=== PATIENT | male | born 1945 | race Caucasian/White ===

== ENCOUNTER 2017-09-18 08:06 | Day surgery (SDC) | payer OTHER ==
[2017-09-16 14:16] VITALS: BMI 34.5
[~2017-09-18 08:06] MED LIST: LACTATED RINGERS 1,000 ML IV SCH
[2017-09-18] MEDS ORDERED: LIDOCAINE 1% 20 ML VIAL (10MG/ML) FOR IV START INTRADERMA ONE (08:35)
[2017-09-18 08:36] VITALS: RESP 16; TEMP 97.5
[2017-09-18] MEDS ORDERED: LIDOCAINE 1% INJ 10MG/ML (20 ML MDV) ONE (09:20)
[2017-09-18] MEDS ORDERED: PROPOFOL 10 MG/ML 20 ML VIAL IV ONE (09:20)
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
--- NOTE | 2017-09-18 09:35 | P.OP ---
Date of Procedure: 09/18/17 Preoperative Diagnosis: Screening colonoscopy Postoperative Diagnosis: Diverticulosis Procedure(s) Performed: Colonoscopy Anesthesia: MAC Surgeon: Antonio Carbajal Pathology: none sent Condition: stable Disposition: PACU Description of Procedure: Patient's placed on the endoscopy table in the lateral position. He received IV sedation. Digital rectal was performed. The prostate was symmetrical nodules. There is no abnormalities. Flexible colonoscope was then placed patient anus passed throughout the entire colon. The ileocecal valve was visualized. The cecum, ascending and transverse colon appeared normal. In the descending; there is mild diverticulosis. There is known to diverticulitis. The scope was then brought back the rectum and this appeared normal. Scope was withdrawn for patient.
[2017-09-18 09:52] VITALS: BP 117/63; PULSE 72
== END 2017-09-18 10:12 | disposition home or self-care (01) ==
LOC: ORWHC2ENDO 08:06
PROVIDERS: ATTEND Surgery
DX: Z12.11 Encounter for screening for malignant neoplasm of colon (principal); K57.30 Diverticulosis of large intestine without perforation or abscess without bleeding; Z86.010 Personal history of colon polyps; I10 Essential (primary) hypertension; Z87.891 Personal history of nicotine dependence; Z79.82 Long term (current) use of aspirin; Z79.899 Other long term (current) drug therapy
CPT/HCPCS: J2001; J2704; G0105